=== PATIENT | female | born 1960 | race Caucasian/White ===

== ENCOUNTER → 2018-02-27 14:50 | Outpatient (CLI) | payer OTHER, SELFPAY ==
--- NOTE | 2018-02-27 14:52 | DI.MG.S_ITS ---
BILATERAL DIGITAL SCREENING MAMMOGRAM 3D/2D WITH CAD: 02/27/2018 CLINICAL: Routine screening. Comparison is made to exams dated: 02/18/2013 mammogram, 09/02/2011 mammogram - [facility], and 06/12/2006 mammogram - [facility]. The tissue of both breasts is heterogeneously dense. This may lower the sensitivity of mammography. Current study was also evaluated with a Computer Aided Detection (CAD) system. No significant masses, calcifications, or other findings are seen in either breast. There has been no significant interval change. IMPRESSION: NEGATIVE There is no mammographic evidence of malignancy. A 1 year screening mammogram is recommended. This exam was interpreted at Station ID: [id number]. NOTE: For mammograms, a report in lay terms will be sent to the patient. Approximately 15% of breast malignancies will not be visualized mammographically. In the management of a palpable breast mass, a negative mammogram must not discourage biopsy of a clinically suspicious lesion. Electronically Signed By: Logan martinez/sebastien:02/27/2018 16:51:31 letter sent: Normal Exam ACR BI-RADS Category 1: Negative 3341F
== END ==
DX: Z12.31 Encounter for screening mammogram for malignant neoplasm of breast (principal)
CPT/HCPCS: 77063; 77067

== ENCOUNTER → 2019-04-03 12:21 | Outpatient (CLI) | payer OTHER, SELFPAY ==
--- NOTE | 2019-04-03 | DI.MG.S_ITS ---
BILATERAL DIGITAL SCREENING MAMMOGRAM 3D/2D WITH CAD: 04/03/2019 CLINICAL: Routine screening. Comparison is made to exams dated: 02/27/2018 mammogram, 02/18/2013 mammogram, 09/02/2011 mammogram - [facility], 06/12/2006 mammogram - [facility], and 09/02/2011 [facility]. The tissue of both breasts is heterogeneously dense. This may lower the sensitivity of mammography. Current study was also evaluated with a Computer Aided Detection (CAD) system. No significant masses, calcifications, or other findings are seen in either breast. There has been no significant interval change. IMPRESSION: NEGATIVE There is no mammographic evidence of malignancy. A 1 year screening mammogram is recommended. This exam was interpreted at Station ID: [id number]. NOTE: For mammograms, a report in lay terms will be sent to the patient. Approximately 15% of breast malignancies will not be visualized mammographically. In the management of a palpable breast mass, a negative mammogram must not discourage biopsy of a clinically suspicious lesion. Electronically Signed By: Aditya patrick/sebastien:04/03/2019 20:16:45 letter sent: Normal Exam ACR BI-RADS Category 1: Negative 3341F
== END ==
PROVIDERS: PCP Physician Assistant Medical; Visit Provider Physician Assistant Medical
DX: Z12.31 Encounter for screening mammogram for malignant neoplasm of breast (principal)
CPT/HCPCS: 77063; 77067

== ENCOUNTER → 2020-08-11 16:02 | Outpatient (CLI) | payer OTHER, SELFPAY ==
--- NOTE | 2020-08-11 | DI.MG.S_ITS ---
BILATERAL DIGITAL SCREENING MAMMOGRAM 3D/2D WITH CAD: 08/11/2020 CLINICAL: Routine screening. Comparison is made to exams dated: 04/03/2019 mammogram and 02/27/2018 mammogram - [facility]. The tissue of both breasts is heterogeneously dense. This may lower the sensitivity of mammography. Current study was also evaluated with a Computer Aided Detection (CAD) system. No significant masses, calcifications, or other findings are seen in either breast. There has been no significant interval change. IMPRESSION: NEGATIVE There is no mammographic evidence of malignancy. A 1 year screening mammogram is recommended. This exam was interpreted at Station ID: [id number]. NOTE: For mammograms, a report in lay terms will be sent to the patient. Approximately 15% of breast malignancies will not be visualized mammographically. In the management of a palpable breast mass, a negative mammogram must not discourage biopsy of a clinically suspicious lesion. Electronically Signed By: Luis E hayden/sebastien:08/11/2020 16:52:58 letter sent: Normal Exam ACR BI-RADS Category 1: Negative 3341F
== END ==
PROVIDERS: PCP Physician Assistant Medical; Referring Provider Physician Assistant Medical; Visit Provider Physician Assistant Medical
DX: Z12.31 Encounter for screening mammogram for malignant neoplasm of breast (principal)
CPT/HCPCS: 77063; 77067

== ENCOUNTER → 2021-09-28 14:51 | Outpatient (CLI) | payer OTHER, SELFPAY ==
--- NOTE | 2021-09-28 | DI.MG.S_ITS ---
BILATERAL DIGITAL SCREENING MAMMOGRAM 3D/2D WITH CAD: 09/28/2021 CLINICAL: Routine screening. Comparison is made to exams dated: 08/11/2020 mammogram, 04/03/2019 mammogram, 02/27/2018 mammogram, and 02/18/2013 mammogram - [facility]. The tissue of both breasts is heterogeneously dense. This may lower the sensitivity of mammography. Current study was also evaluated with a Computer Aided Detection (CAD) system. No significant masses, calcifications, or other findings are seen in either breast. There has been no significant interval change. IMPRESSION: NEGATIVE There is no mammographic evidence of malignancy. A 1 year screening mammogram is recommended. This exam was interpreted at Station ID: [id number]. NOTE: For mammograms, a report in lay terms will be sent to the patient. Approximately 15% of breast malignancies will not be visualized mammographically. In the management of a palpable breast mass, a negative mammogram must not discourage biopsy of a clinically suspicious lesion. Electronically Signed By: Aditya patrick/sebastien:09/28/2021 17:15:34 letter sent: Normal Exam ACR BI-RADS Category 1: Negative 3341F
== END ==
PROVIDERS: PCP Physician Assistant Medical; Referring Provider Physician Assistant Medical; Visit Provider Physician Assistant Medical
DX: Z12.31 Encounter for screening mammogram for malignant neoplasm of breast (principal)
CPT/HCPCS: 77063; 77067

== ENCOUNTER → 2022-11-02 14:45 | Outpatient (CLI) | payer OTHER, SELFPAY ==
--- NOTE | 2022-11-02 | DI.MG.S_ITS ---
BILATERAL DIGITAL SCREENING MAMMOGRAM 3D/2D WITH CAD: 11/02/2022 CLINICAL: Routine screening. Comparison is made to exams dated: 09/28/2021 mammogram, 08/11/2020 mammogram, and 04/03/2019 mammogram - [facility]. Both breasts are heterogeneously dense, which may obscure small masses (category c / 51-75% glandular tissue). Current study was also evaluated with a Computer Aided Detection (CAD) system. No significant masses, calcifications, or other findings are seen in either breast. There has been no significant interval change. IMPRESSION: NEGATIVE There is no mammographic evidence of malignancy. A 1 year screening mammogram is recommended. Based on the Tyrer Cuzick model (a risk assessment model) the patient's lifetime risk is 10.5% and her 10 year risk is 4.7%. According to the ACR, ACS, and NCCN guidelines, an annual breast MRI exam along with mammogram is recommended if the patient's lifetime risk is 20% or greater. This exam was interpreted at Station ID: [id number]. NOTE: For mammograms, a report in lay terms will be sent to the patient. Approximately 15% of breast malignancies will not be visualized mammographically. In the management of a palpable breast mass, a negative mammogram must not discourage biopsy of a clinically suspicious lesion. Electronically Signed By: Brian hill/sebastien:11/02/2022 15:19:56 letter sent: Normal Exam ACR BI-RADS Category 1: Negative 3341F
== END ==
PROVIDERS: PCP Physician Assistant Medical; Referring Provider Physician Assistant Medical; Visit Provider Physician Assistant Medical
DX: Z12.31 Encounter for screening mammogram for malignant neoplasm of breast (principal)
CPT/HCPCS: 77063; 77067

== ENCOUNTER 2023-09-06 23:04 | Emergency (ER) | payer OTHER, SELFPAY ==
[2023-09-06 23:15] VITALS: BP 163/81; PULSE 62; RESP 15; TEMP 36.7; O2SAT 98; BMI 21.4
[2023-09-06 23:20] VITALS: PULSE 65; RESP 16; O2SAT 99
[2023-09-06 23:30] VITALS: BP 163/81; PULSE 61; O2SAT 99
[2023-09-06 23:31] LABS: Add Manual Diff / Slide Review NO; Basophils Absolute Auto 0 /uL (0-100); Basophils Percent Auto 0.4 % (0-2); Eosinophils Absolute Auto 0 /uL (0-450); Eosinophils Percent Auto 0.2 % (2-4); Hematocrit 40.1 % (36-46); Hemoglobin 13.8 g/dL (12.0-16.0); Lymphocytes Absolute Auto 1000 /uL (1100-4500); Lymphocytes Percent Auto 11.9 % (25-40); Mean Corpuscular HGB Conc 34.3 % (30-36); Mean Corpuscular Volume 90.3 fL (80-100); Monocytes Absolute Auto 300 /uL (0-900); Monocytes Percent Auto 3.8 % (3-14); Neutrophils Absolute Auto 7000 /uL (1500-7000); Neutrophils Percent Auto 83.7 % (50-75); Platelet Count 317 X10^3/uL (150-400); Red Blood Cell Count 4.44 X10^6/uL (4.0-5.2); Red Cell Distribution Width 13.6 % (11.6-14.8); White Blood Cell Count 8.3 X10^3/uL (4.5-11.0)
--- NOTE | 2023-09-06 23:31 | ED.GENADULT ---
HPI - General Adult General Chief complaint: Abdominal Pain Stated complaint: severe abd pain Time Seen by Provider: 09/06/23 23:18 Source: patient Mode of arrival: Ambulatory History of Present Illness HPI narrative: Patient is a 62-year-old female. Approximately 10 years ago she donated her right kidney. She also has had a ?fallopian tube cyst? approximately 20 years ago. The fallopian tube cyst did require surgical removal. Her last colonoscopy was approximately 10 years ago. She was scheduled for another colonoscopy in approximately 8 weeks. She states that at about 1500 this afternoon she started to get left-sided abdominal pain. She took some Tylenol and that seemed to resolve the symptoms for short period of time but then the symptoms returned. She then had some nausea but no vomiting. No change in urination. States she feels like she is emptying her bladder. No diarrhea. No constipation. No blood in her stool. Related Data Previous Rx's Medication Instructions Recorded peg 3350-sod sulf,swphh-klf-awe 1,000 ml PO DIRECTED #2,000 mL 09/01/23 178.7-7.3-0.5-1.12-0.9 gram oral soln (Suflave) Allergies Allergy/AdvReac Type Severity Reaction Status Date / Time SHELLFISH Allergy Mild CRABS, Uncoded 11/08/17 12:17 LARGE AMOUNTS Review of Systems Gastrointestinal Gastrointestinal: Reports system reviewed and no additional complaints, except as documented Genitourinary Genitourinary: Reports system reviewed and no additional complaints, except as documented Integumentary/Breasts Skin/Breast: Reports system reviewed and no additional complaints, except as documented Patient History Surgical History (Updated 11/28/17 @ 05:54 by Nirav Chowdhury MD) History of nephrectomy (06/10/13) Social History Smoking Status: Never smoker Smoking Status: Never smoker Substance Use Type: does not use Exam Initial Vital Signs Initial Vital Signs: Vital Signs Temperature 98.0 F 09/06/23 23:15 Pulse Rate 62 09/06/23 23:15 Respiratory Rate 15 09/06/23 23:15 Blood Pressure 163/81 H 09/06/23 23:15 Pulse Oximetry 98 09/06/23 23:15 Oxygen Delivery Method Room Air 09/06/23 23:15 HENMT Head: normal to inspection and normocephalic Resp Effort & Inspection: normal respiratory effort Cardio Rate: regular rate GI Inspection: non-distended and scar Palpation: soft, mass (Suprapubic region) and tender (Suprapubic region, left-sided abdomen) Neuro General: patient alert, patient awake and moves all extremities Extrem General: capillary refill normal Course Orders Ordered: ED Orders 09/06/23 23:10 Urine Culture Stat Urine Microscopic Stat 09/06/23 23:17 Complete Blood Count AUTO DIFF Stat Comprehensive Metabolic Panel Stat Lipase Stat 09/06/23 23:31 CT abdomen pelvis w con Stat 09/07/23 01:35 US pelvic complete Stat 09/07/23 02:53 CEA [Carcinoembryonic Antigen] Stat 09/07/23 03:03 Human Epididymis Prot 4 Stat Discontinued Medications Hydrocodone Bitart/Acetaminophen (Hydrocodone/Acet 5/325 Prepack) 1 bottle MISC DIRECTED ONE Stop: 09/07/23 04:11 Last Admin: 09/07/23 04:14 Dose: 1 bottle Documented By: KAVON Sodium Chloride (Normal Saline 0.9%) 1,000 mls @ 1,000 mls/hr IV BOLUS ONE Stop: 09/07/23 00:30 Last Infusion: 09/07/23 00:56 Dose: Infused Documented By: Admin: 09/06/23 23:40 Dose: 1,000 mls/hr Documented By: KAVON Ondansetron HCl (Ondansetron 4 Mg/2 Ml Inj) 4 mg IV NOW ONE Stop: 09/06/23 23:32 Last Admin: 09/06/23 23:40 Dose: 4 mg Documented By: KAVON Vital Signs Vital signs: Vital Signs - 8 hr 09/06/23 23:15 09/06/23 23:20 09/06/23 23:30 Temperature 98.0 F Pulse Rate 62 65 61 Respiratory Rate 15 16 Blood Pressure 163/81 H 163/81 H Pulse Oximetry 98 99 99 Oxygen Delivery Method Room Air Room Air 09/07/23 00:00 09/07/23 00:01 09/07/23 00:01 Temperature Pulse Rate 66 66 Respiratory Rate 18 Blood Pressure 152/67 H 152/67 H Pulse Oximetry 98 99 Oxygen Delivery Method Room Air 09/07/23 00:30 09/07/23 00:30 09/07/23 01:29 Temperature Pulse Rate 62 Respiratory Rate 17 Blood Pressure 147/70 H 144/78 H Pulse Oximetry 99 Oxygen Delivery Method Room Air 09/07/23 01:29 09/07/23 01:30 09/07/23 01:30 Temperature Pulse Rate 67 68 Respiratory Rate 17 Blood Pressure 139/81 Pulse Oximetry 96 97 Oxygen Delivery Method Room Air 09/07/23 02:00 09/07/23 02:00 09/07/23 02:30 Temperature Pulse Rate 67 67 Respiratory Rate 18 Blood Pressure 133/78 Pulse Oximetry 97 99 Oxygen Delivery Method Room Air 09/07/23 02:30 09/07/23 03:00 09/07/23 03:00 Temperature Pulse Rate 68 Respiratory Rate 19 Blood Pressure 139/69 137/67 Pulse Oximetry 97 Oxygen Delivery Method Room Air 09/07/23 03:30 09/07/23 03:30 09/07/23 04:00 Temperature Pulse Rate 68 67 Respiratory Rate 17 17 Blood Pressure 148/73 H Pulse Oximetry 98 97 Oxygen Delivery Method Room Air Room Air 09/07/23 04:00 Temperature Pulse Rate Respiratory Rate Blood Pressure 137/73 Pulse Oximetry Oxygen Delivery Method Medical Decision Making Lab Data Lab results reviewed: Yes I reviewed the patient's lab results. 09/06/23 23:17 09/06/23 23:17 Labs: Lab Results 09/06/23 09/06/23 Range/Units 23:10 23:17 WBC 8.3 (4.5-11.0) X10^3/uL RBC 4.44 (4.0-5.2) X10^6/uL Hgb 13.8 (12.0-16.0) g/dL Hct 40.1 (36-46) % MCV 90.3 (80-100) fL MCH 31.0 (26-34) PG MCHC 34.3 (30-36) % RDW 13.6 (11.6-14.8) % Plt Count 317 (150-400) X10^3/uL Neut % (Auto) 83.7 H (50-75) % Lymph % (Auto) 11.9 L (25-40) % Marin % (Auto) 3.8 (3-14) % Eos % (Auto) 0.2 L (2-4) % Baso % (Auto) 0.4 (0-2) % Neut # (Auto) 7000 (7693-3321) /uL Lymph # (Auto) 1000 L (2333-5290) /uL Marin # (Auto) 300 (0-900) /uL Eos # (Auto) 0 (0-450) /uL Baso # (Auto) 0 (0-100) /uL Sodium 137 (137-145) mmol/L Potassium 4.3 (3.4-5.1) mmol/L Chloride 102 (98-107) mmol/L Carbon Dioxide 27 (22-32) mmol/L BUN 16 (7-17) mg/dL Creatinine 0.89 (0.52-1.04) mg/dL Estimated GFR > 60 (>60) mL/min BUN/Creatinine Ratio 18.0 (6-22) Glucose 157 H (80-110) mg/dL Calcium 9.6 (8.4-10.2) mg/dL Total Bilirubin 0.5 (0.2-1.3) mg/dL AST 31 (14-36) IU/L ALT 24 (<35) IU/L Alkaline Phosphatase 78 (38-126) U/L Total Protein 7.7 (6.3-8.2) g/dL Albumin 4.5 (3.5-5.0) g/dL Globulin 3.2 (1.7-4.1) g/dL Albumin/Globulin Ratio 1.4 (1.0-2.8) Lipase 109 (23-300) U/L Carcinoembryonic Ag 1.2 (0.1-3.0) ng/mL Urine RBC 1-5/hpf (0-5/HPF) Urine WBC 1-5/hpf (0-5/HPF) Ur Squamous Epith Cells 1-5 /hpf (0-5/HPF) Urine Bacteria Moderate (10-30) H (None) Hyaline Casts 0-1/lpf (None) Urine Mucus 2+ H (Negative) Ur Culture Indicated? Specimen cultured Vol Urine Centrifuged 10ml (spun) Urine Dip Bedside Urine Glucose Negative Bedside Urine Bilirubin - Negative Bedside Urine Ketone +/- 5 Urine Specific [place] 1.030 Bedside Urine Occult Blood + Bedside Urine pH 6.0 Bedside Urine Protein +/- 15 Bedside Urine Urobilinogen - Negative Bedside Urine Nitrite - Negative Bedside Urine Leukocytes +/- 15 Esterase Point of care testing: Urine Dip Bedside Urine Glucose Negative Bedside Urine Bilirubin - Negative Bedside Urine Ketone +/- 5 Urine Specific [place] 1.030 Bedside Urine Occult Blood + Bedside Urine pH 6.0 Bedside Urine Protein +/- 15 Bedside Urine Urobilinogen - Negative Bedside Urine Nitrite - Negative Bedside Urine Leukocytes +/- [address] scan - abdomen/pelvis: Radiologist's Impression: ADDENDUMThis report includes an Addendum and supersedes previous reports for this exam. PROCEDURE: CT ABDOMEN PELVIS W CON INDICATIONS: LLQ abd pain TECHNIQUE: After the administration of intravenous contrast, axial sections acquired from the lung bases to the pubic symphysis. Coronal and sagittal reformats were performed. For radiation dose reduction, the following was used: automated exposure control, adjustment of mA and/or kV according to patient size. COMPARISON: None. FINDINGS: Image quality: Diagnostic. Lower Chest: No significant findings. ABDOMEN: Liver: No solid mass. Gallbladder: Normal. Biliary ducts: Minor central biliary dilatation. No extrahepatic biliary dilatation. No visible calcifications. Pancreas: No ductal dilation. Spleen: Size is within normal limits. Adrenal Glands: Mild left adrenal gland thickening. Normal right adrenal gland. Kidneys and Ureters: Surgically absent right kidney. There is normal left renal enhancement. Subcentimeter corticomedullary lower pole cyst. No hydronephrosis, nephrolithiasis, or perinephric inflammation. No visible left hydroureter. Stomach and Bowel: Stomach and proximal bowel loops are within normal limits. Clustered decompressed small bowel loops in the left lower quadrant are nonspecific. There is trace fluid in the anterior left lower quadrant. The appendix was not well seen. Visible loops of colon are normal. Peritoneum: No abnormal intraperitoneal fluid. No free air. Ventral Wall: No significant ventral hernia. Abdominal Nodes: No retroperitoneal or mesenteric adenopathy by size criteria. Vessels: Aorta and inferior vena cava are normal in size. PELVIS: Pelvic Organs: The uterus is anteverted and displaced to the left. Ovaries are not well seen by CT. Bladder: Urinary bladder is markedly distended. Normal wall thickness. No stones. Pelvic Nodes: No enlarged lymph nodes. Miscellaneous: No inguinal hernias are seen. Bones: No aggressive osseous abnormality. IMPRESSION: Markedly distended urinary bladder but without left-sided hydronephrosis. There is trace fluid in the anterior left lower quadrant and clustered decompressed left lower quadrant small bowel loops. These are nonspecific. Enteritis may have this appearance. No acute small bowel obstruction. Dictated by: Kaylynn Bui M.D. on 09/07/2023 at 0:30 Approved by: Kaylynn Bui M.D. on 09/07/2023 at 0:37 ADDENDUM: On further review, structure believed to be the urinary bladder initially is a unilocular cystic mass measuring 11.7 x 11.1 x 13.1 cm inferiorly displacing the urinary bladder. The organ of etiology is uncertain but most likely arises from the right ovary. There is no septation or significant mural nodularity. Internal Hounsfield units are that of minimally complex fluid, 13 HU. Findings discussed with Dr. Galvan in the emergency room. Pelvic ultrasound is pending. Dictated by: Kaylynn Bui M.D. on 09/07/2023 at 2:20 Approved by: Kaylynn Bui M.D. on 09/07/2023 at 2:23 Addendum Dictated By: Kaylynn Bui MD Addendum Signed By: 09/07/23222 Addendum Cosigned By: DD/ /23/223 TD/TT: 09/07/2303/23/223 PROCEDURE: CT ABDOMEN PELVIS W CON INDICATIONS: LLQ abd pain TECHNIQUE: After the administration of intravenous contrast, axial sections acquired from the lung bases to the pubic symphysis. Coronal and sagittal reformats were performed. For radiation dose reduction, the following was used: automated exposure control, adjustment of mA and/or kV according to patient size. COMPARISON: None. FINDINGS: Image quality: Diagnostic. Lower Chest: No significant findings. ABDOMEN: Liver: No solid mass. Gallbladder: Normal. Biliary ducts: Minor central biliary dilatation. No extrahepatic biliary dilatation. No visible calcifications. Pancreas: No ductal dilation. Spleen: Size is within normal limits. Adrenal Glands: Mild left adrenal gland thickening. Normal right adrenal gland. Kidneys and Ureters: Surgically absent right kidney. There is normal left renal enhancement. Subcentimeter corticomedullary lower pole cyst. No hydronephrosis, nephrolithiasis, or perinephric inflammation. No visible left hydroureter. Stomach and Bowel: Stomach and proximal bowel loops are within normal limits. Clustered decompressed small bowel loops in the left lower quadrant are nonspecific. There is trace fluid in the anterior left lower quadrant. The appendix was not well seen. Visible loops of colon are normal. Peritoneum: No abnormal intraperitoneal fluid. No free air. Ventral Wall: No significant ventral hernia. Abdominal Nodes: No retroperitoneal or mesenteric adenopathy by size criteria. Vessels: Aorta and inferior vena cava are normal in size. PELVIS: Pelvic Organs: The uterus is anteverted and displaced to the left. Ovaries are not well seen by CT. Bladder: Urinary bladder is markedly distended. Normal wall thickness. No stones. Pelvic Nodes: No enlarged lymph nodes. Miscellaneous: No inguinal hernias are seen. Bones: No aggressive osseous abnormality. IMPRESSION: Markedly distended urinary bladder but without left-sided hydronephrosis. There is trace fluid in the anterior left lower quadrant and clustered decompressed left lower quadrant small bowel loops. These are nonspecific. Enteritis may have this appearance. No acute small bowel obstruction. Dictated by: Kaylynn Bui M.D. on 09/07/2023 at 0:30 Approved by: Kaylynn Bui M.D. on 09/07/2023 at 0:37 [facility] - [facility]: Radiologist's Impression: Has visualized on the accompanying CT examination a large anechoic cystic like structure within the central aspect of the pelvis both anterior to the uterus and superior to the urinary bladder. The cyst measures 13.5 x 13.7 by 10.3 cm. The size of the cyst obscures visualization of bilateral ovaries. Given size of the cyst and patient's age recommend surgical evaluation. Consider MRI imaging of the female pelvis with IV contrast for improve characterization of the adnexa MDM Narrative Medical decision making narrative: Patient is very skinny so it is easy to feel a masslike structure in her adnexa. She denies any urinary symptoms or change in bowel habits. Labs are unremarkable. Vital signs unremarkable. She does have a relatively benign abdominal exam. No vaginal bleeding. CT scan initial report was the patient had a large urinary bladder. Postvoid residual showed volume of almost 900 cc. A Hale catheter was placed. Only a very small amount of urine came out. The Hale catheter was flushed. I did have nursing staff removed that catheter in place a new 1 to confirm that we were in the correct position and once again only a small amount of urine resulted. I then discussed the case with Dr. Bui radiologist who was on-call who reviewed the CT scan. She states there is a possibility that this is a cystic structure not the bladder. She stated that it did appear to be sitting on top of the bladder. Ultrasound was ordered. It does show a large cystic structure. The ovaries were not identified. I discussed the case with Dr. Espinal on-call for telephone diaphragm assembler. She asked specific labs that would help in follow-up. No indication for admission to the hospital for emergent surgical surgery. We will plan for outpatient telephone diaphragm assembler follow-up. I did discuss all this with the patient. She expressed understanding and agreement with plan. Discharge Plan Departure Patient Disposition: Home Clinical Impression: Pelvic cyst Activity Restrictions/Additional Instructions: Recommend that when the office is open later today that you give Dr. Santiago at the [facility] a call for a follow-up. I did discuss the CT and ultrasound findings today with her and she would like to see you in the clinic as an outpatient to discuss further evaluation and treatment. Return to the emergency department for new symptoms. Prescriptions: No Action Suflave 178.7-7.3-0.5 gram recon soln 1,000 ml PO DIRECTED Qty: 2000 0RF Rx Instructions: follow instruction form provided by [facility] Referrals: Chasity Santiago DO [Physician] - Kaylan Almendarez PA-C [Primary Care Provider] - Stand Alone Forms: Patient Portal/API
[2023-09-06 23:34] LABS: Bacteria Urine Moderate (10-30); Hyaline Casts Urine 0-1/LPF; RBC Urine 1-5/HPF (0-5/HPF); Squamous Epithelial Cell Urine 1-5 /HPF (0-5/HPF); Urine Volume 10mL (spun); WBC Urine 1-5/HPF (0-5/HPF)
[2023-09-06 23:35] LABS: Mucus Urine 2+ (Negative)
[2023-09-06 23:36] LABS: Culture Indicated Urine Specimen Cultured
[2023-09-06 23:40] LABS: Alanine Aminotransferase 24 IU/L (<35); Albumin 4.5 g/dL (3.5-5.0); Albumin Globulin Ratio 1.4 (1.0-2.8); Alkaline Phosphatase 78 U/L (38-126); Aspartate Aminotransferase 31 IU/L (14-36); Bilirubin Total 0.5 mg/dL (0.2-1.3); Blood Urea Nitrogen 16 mg/dL (7-17); Calcium 9.6 mg/dL (8.4-10.2); Carbon Dioxide 27 mmol/L (22-32); Chloride 102 mmol/L (98-107); Estimated Glomerular Filt Rate > 60 mL/min (>60); Globulin 3.2 g/dL (1.7-4.1); Glucose 157 mg/dL (80-110); HEMOLYSIS < 15 (0-50); Lipase 109 U/L (23-300); Potassium 4.3 mmol/L (3.4-5.1); Sodium 137 mmol/L (137-145); Total Protein 7.7 g/dL (6.3-8.2)
[2023-09-06] MEDS: ONDANSETRON 4 MG/2 ML INJ IV (23:40)
[2023-09-06] MEDS: SODIUM CHLORIDE 0.9% 1,000 ML 1000 ML IV (23:40)
[2023-09-07] VITALS (10 sets, daily range): BP systolic 133–152; BP diastolic 67–81; PULSE 62–68; RESP 17–19; O2SAT 96–99
--- NOTE | 2023-09-07 01:35 | DI.US.S_ITS ---
PROCEDURE: US PELVIC COMPLETE INDICATIONS: large ovarian cyst TECHNIQUE: Real-time scanning was performed of the pelvic organs, with image documentation. Additional endovaginal scanning was necessary due to incomplete visualization of the adnexal and endometrial structures by transabdominal scanning. COMPARISON: , CT, CT ABDOMEN PELVIS W CON, 09/06/2023, 23:47. [facility], [place], PELVIC COMPLETE, 11/23/2011, 16:26. FINDINGS: Uterus: Uterus is anteverted and normal in size at 7.2 x 3.0 x 4.9 cm. The myometrium is homogeneous. The endometrium measures 4.4 mm combined thickness. Ovaries: The ovaries are not seen. There is a large midline simple cyst measuring 13.5 x 13.7 x 10.3 centimeters. Other: No pathologic free abdominal or pelvic fluid. Hale catheter seen within the urinary bladder. IMPRESSION: Large anechoic cystic structure within the central pelvis measuring up to 13.7 centimeters. The origin the cyst is not visualized. Findings are concerning for a possible ovarian neoplasm. Recommend gynecology consultation. The ovaries are not visualized. Findings are concordant with preliminary interpretation provided by [facility]. We strive to produce accurate, complete, and clear reports of imaging services. To assist us in improving patient care, this report was composed using standard report templates and voice recognition software. Therefore, it may contain abnormal punctuation, insertions and/or omissions. Occasional wrong-word or sound-alike substitutions may occur. Though we review the report and make efforts to correct it, we do recommend that the report be read carefully in proper context to recognize any text inaccuracies. Dictated by: Wyatt Najera M.D. on 09/07/2023 at 8:18 Approved by: Wyatt Najera M.D. on 09/07/2023 at 8:21
[2023-09-07 03:42] LABS: Carcinoembryonic Antigen 1.2 ng/mL (0.1-3.0)
[2023-09-07] MEDS: HYDROCODONE/ACET 5/325 PREPACK 1 BOTTLE MISC (04:14)
[2023-09-12 18:21] LABS: Human Epididymis Prot 4 39.6 pmol/L (0.0-96.5)
== END 2023-09-07 04:21 | disposition home or self-care (01) ==
PROVIDERS: Emergency Provider Emergency Medicine; PCP Physician Assistant Medical
DX: N94.89 Other specified conditions associated with female genital organs and menstrual cycle (principal)
CPT/HCPCS: 36415; 51798; 74177; 76830; 76856; 80053; 81003; 81015; 82378; 83690; 85025; 86305; 87086; 99285; J2405; Q9967

== ENCOUNTER 2023-09-09 10:12 | Day surgery (SDC) | payer OTHER, SELFPAY ==
[2023-09-09] VITALS (9 sets, daily range): BP systolic 114–138; BP diastolic 69–83; PULSE 83–100; RESP 16–26; TEMP 36.9–38.1; O2SAT 97–99; BMI 20.9
--- NOTE | 2023-09-09 | PATH_ITS ---
[facility] Accession Number: [id number] No. of containers..01 Tissue . 01 Material submitted: . fallopian tube - BILATERAL TUBES AND OVARIES WITH LEFT OVARIAN CYST . 01 Diagnosis: Bilateral Fallopian Tubes and Ovaries with Left Ovarian Cyst; Bilateral Salpingo-oophorectomy: Left ovary: Benign cystadenoma endometrioid-type, with torsion. Negative for significant atypia and malignancy. Right ovary: Benign ovary with cystic follicles. Left fallopian tube: Benign fallopian tube with changes secondary to torsion of attached left ovary. Right fallopian tube: No significant diagnostic abnormalities. [facility] 09/15/2023 1601 Local . 01 Comment: As part of ongoing quality improvement consultant, selected slides (A12 and A19) were also reviewed by Dr. Candis Figueroa, who agrees with the interpretation. . 01 Electronically signed: . Juana Okeefe MD, Pathologist NPI- [id number] . 01 Gross description: . The specimen is received in formalin labeled with the patient's name, , and bilateral fallopian tubes and ovaries with left ovarian cyst, consists of an intact fimbriated fallopian tube measuring 5.5 cm in length by 1.2 cm in diameter with attached ovary weighing 5 grams and measuring 3.7 x 2.0 x 1.3 cm. The tube has violaceous smooth serosa with no cystic structures identified, and sectioning reveals an unremarkable stellate lumen. The ovary has a cheney, cerebriform external surface. Sectioning reveals a thin, smooth-walled cystic structure filled with cheney serous fluid measuring 0.8 cm in greatest dimension with no excrescences identified. . The second fallopian tube has ragged presumed fimbriae, and measures 4.1 cm in length by 0.6 cm in diameter with violaceous serosa. Sectioning reveals an unremarkable stellate lumen. The presumed second ovary consists of multiple fragments of violaceous membranous soft tissue admixed with hemorrhagic material consistent with disrupted cyst weighing 126 grams, and aggregating to 14.8 x 12.4 x 4.5 cm. No excrescences are grossly identified; however, the fragments of presumed cyst wall are thickened with hemorrhagic material up to 0.8 cm. Sectioning reveals a violaceous to hemorrhagic cut surface with no normal ovarian parenchyma grossly identified. . [employer] Service [employer] sections are submitted as follow: A1: First fallopian tube to include one-half of bisected fimbriae and cross sections. A2: First ovary to include cystic structure. A3: Second fallopian tube to include one-half of ragged fimbriae and cross sections. A4-A20: Agricultural Service Technician hemorrhagic fragment of presumed cyst. ([id number]) /MRV 09/12/2023 1236 Local . 01 Microscopic: . Microscopic examination of the left ovarian cyst reveals a unilocular cyst lined by endometrioid type epithelium, without definite endometrial stroma. The endometrioid-type epithelium is highlighted by PAX-8 immunostain (block A19). The lining epithelium shows focal squamoid metaplasia, and in some areas marked degenerative changes secondary to torsion. In addition, marked congestion and hemorrhage are noted. The histologic findings support endometrioid-type cystadenoma of the left ovary, without definite background of endometriosis. There is no significant cytologic atypia or malignancy. . * This test was developed and its performance characteristics determined by [employer]. It has not been cleared or approved by the U.S. Food and Drug Administration. The FDA has determined that such clearance or approval is not necessary. This test is used for clinical purposes. It should not be regarded as investigational or for research. . 01 Pathologist provided ICD-10: D27.9 . 01 CPT . 340272, N50823 Specimen Comment: A courtesy copy of this report has been sent to [phone] Performed at: 01 [facility] Cytology [address] [place] [address], [place], [place] [id number] MD Jaspreet Guo MD Phone: [phone]
[2023-09-09 11:03] LABS: Add Manual Diff / Slide Review NO; Basophils Absolute Auto 100 /uL (0-100); Basophils Percent Auto 0.4 % (0-2); Eosinophils Absolute Auto 0 /uL (0-450); Eosinophils Percent Auto 0.1 % (2-4); Hematocrit 38.2 % (36-46); Hemoglobin 12.8 g/dL (12.0-16.0); Lymphocytes Absolute Auto 1000 /uL (1100-4500); Mean Corpuscular HGB Conc 33.6 % (30-36); Mean Corpuscular Hemoglobin 30.8 PG (26-34); Mean Corpuscular Volume 91.8 fL (80-100); Monocytes Absolute Auto 1600 /uL (0-900); Monocytes Percent Auto 8.1 % (3-14); Neutrophils Absolute Auto 17200 /uL (1500-7000); Neutrophils Percent Auto 86.4 % (50-75); Platelet Count 314 X10^3/uL (150-400); Red Blood Cell Count 4.17 X10^6/uL (4.0-5.2); Red Cell Distribution Width 13.6 % (11.6-14.8); White Blood Cell Count 19.9 X10^3/uL (4.5-11.0)
[2023-09-09 11:14] LABS: Alanine Aminotransferase 21 IU/L (<35); Albumin 4.1 g/dL (3.5-5.0); Albumin Globulin Ratio 1.1 (1.0-2.8); Alkaline Phosphatase 73 U/L (38-126); Aspartate Aminotransferase 23 IU/L (14-36); BUN Creatinine Ratio 14.6 (6-22); Bilirubin Total 0.8 mg/dL (0.2-1.3); Blood Urea Nitrogen 15 mg/dL (7-17); Calcium 9.5 mg/dL (8.4-10.2); Carbon Dioxide 25 mmol/L (22-32); Chloride 99 mmol/L (98-107); Estimated Glomerular Filt Rate > 60 mL/min (>60); Globulin 3.6 g/dL (1.7-4.1); Glucose 126 mg/dL (80-110); HEMOLYSIS < 15 (0-50); Lipase 49 U/L (23-300); Potassium 4.2 mmol/L (3.4-5.1); Sodium 135 mmol/L (137-145); Total Protein 7.7 g/dL (6.3-8.2)
[2023-09-09 11:50] LABS: Urine Volume 10mL (spun)
[2023-09-09 11:51] LABS: Bacteria Urine Few (2-10); RBC Urine 1-5/HPF (0-5/HPF); Squamous Epithelial Cell Urine 1-5 /HPF (0-5/HPF); WBC Urine 1-5/HPF (0-5/HPF)
[2023-09-09] MEDS: SODIUM CHLORIDE 0.9% 1,000 ML 1000 ML IV (12:15)
--- NOTE | 2023-09-09 13:34 | ED_ITS ---
HPI - Abdominal Pain <Radha Ibrahim PA-C - Last Filed: 09/09/23 14:24> General Chief Complaint: Abdominal Pain Stated Complaint: abd issues Time Seen by Provider: 09/09/23 11:42 Source: patient Mode of arrival: Family Vehicle History of Present Illness HPI narrative: Patient is a 62-year-old female who presents with worsening abdominal pain and distention. She was seen 3 days ago in the ER where a large (13.5 x 13.7 x10.3cm) cyst was seen in her pelvis, on both CT and ultrasound. The ovaries were not visualized. She was told to follow up with Gynecology has a has a appointment scheduled with Dr. Santiago on Monday. Over the past 3 days, she has experienced progressively more abdominal distention, is unable to eat more than one spoonful of yogurt and is drinking a very small amount of water. She endorses low-grade fever of 100.1 at home and chills. She denies nausea, vomiting, urinary symptoms, back pain, blood in her stool or visible blood in her urine. She has tried taking both Tylenol hydrocodone home; neither seemed to help with her discomfort or pain. Approximately 10 years ago she donated her right kidney. She also has had a ?fallopian tube cyst? approximately 20 years ago. The fallopian tube cyst did require surgical removal. Her last colonoscopy was approximately 10 years ago. She was scheduled for another colonoscopy in approximately 8 weeks. Related Data Previous Rx's Medication Instructions Recorded peg 3350-sod sulf,psxkz-gpc-dgc 1,000 ml PO DIRECTED #2,000 mL 09/01/23 178.7-7.3-0.5-1.12-0.9 gram oral soln (Suflave) Allergies Allergy/AdvReac Type Severity Reaction Status Date / Time SHELLFISH Allergy Mild CRABS, Uncoded 11/08/17 12:17 LARGE AMOUNTS Review of Systems <Radha Ibrahim PA-C - Last Filed: 09/09/23 14:24> Review of Systems ROS Unobtainable: All systems reviewed & are unremarkable except as noted in HPI and below Patient History <Radha Ibrahim PA-C - Last Filed: 09/09/23 14:24> Surgical History (Updated 09/09/23 @ 14:27 by Jennifer Turcios MD) History of salpingectomy History of nephrectomy (06/10/13) Social History Smoking Status: Never smoker Smoking Status: Never smoker Substance Use Type: does not use Exam <Radha Ibrahim PA-C - Last Filed: 09/09/23 14:24> Narrative Exam Narrative: GENERAL: 62 year old patient appears stated age. Well-developed patient, in mild distress. NEURO: AOx3. HEAD: Atraumatic. Normocephalic. EYES: Pupils equal round and reactive. Extraocular motions intact. No scleral icterus. No injection or drainage. ENT: Nose without bleeding or purulent drainage. Airway patent. CARDIOVASCULAR: Regular rate and rhythm without murmurs, gallops, or rubs. RESPIRATORY: Clear to auscultation. Breath sounds equal bilaterally. No wheezes, rales, or rhonchi. GASTROINTESTINAL: Abdomen visibly distended, diffusely tender to light palpation. EXTREMITIES: No edema or joint tenderness. SKIN: No rash or erythema of visible areas Initial Vital Signs Initial Vital Signs: Vital Signs Temperature 98.4 F 09/09/23 10:32 Pulse Rate 100 H 09/09/23 10:32 Respiratory Rate 16 09/09/23 10:32 Blood Pressure 118/76 09/09/23 10:32 Pulse Oximetry 98 09/09/23 10:32 Oxygen Delivery Method Room Air 09/09/23 10:32 <Mitali Sandy MD - Last Filed: 09/09/23 15:35> Initial Vital Signs Initial Vital Signs: Vital Signs Temperature 98.4 F 09/09/23 10:32 Pulse Rate 100 H 09/09/23 10:32 Respiratory Rate 16 09/09/23 10:32 Blood Pressure 118/76 09/09/23 10:32 Pulse Oximetry 98 09/09/23 10:32 Oxygen Delivery Method Room Air 09/09/23 10:32 Course <Radha Ibrahim PA-C - Last Filed: 09/09/23 14:24> Orders Ordered: ED Orders 09/09/23 10:40 Cancer Antigen 125 Stat Complete Blood Count AUTO DIFF Stat Comprehensive Metabolic Panel Stat Lipase Stat 09/09/23 11:31 Urine Culture Stat Urine Microscopic Stat Lactated Ringer's (Lactated Ringers) 1,000 mls @ 21 mls/hr IV CONT TIFFANY Ondansetron HCl (Ondansetron 4 Mg/2 Ml Inj) 4 mg IV NOW PRN PRN Reason: Nausea And Vomiting Ondansetron HCl (Ondansetron 4 Mg Odt) 4 mg PO NOW PRN PRN Reason: Nausea And Vomiting Discontinued Medications Sodium Chloride (Normal Saline 0.9%) 1,000 mls @ 1,000 mls/hr IV BOLUS ONE Stop: 09/09/23 13:00 Last Infusion: 09/09/23 13:20 Dose: Infused Documented By: Admin: 09/09/23 12:15 Dose: 1,000 mls/hr Documented By: CHARITO Cefazolin Sodium/Dextrose (Ancef) 100 mls @ 200 mls/hr IV NOW ONE Stop: 09/09/23 14:52 Vital Signs Vital signs: Vital Signs - 8 hr 09/09/23 10:32 09/09/23 13:38 Temperature 98.4 F 99.3 F Pulse Rate 100 H 86 Respiratory Rate 16 20 Blood Pressure 118/76 138/76 Pulse Oximetry 98 Oxygen Delivery Method Room Air Room Air <Mitali Sandy MD - Last Filed: 09/09/23 15:35> Orders Ordered: ED Orders 09/09/23 10:40 Cancer Antigen 125 Stat Complete Blood Count AUTO DIFF Stat Comprehensive Metabolic Panel Stat Lipase Stat 09/09/23 11:31 Urine Culture Stat Urine Microscopic Stat Lactated Ringer's (Lactated Ringers) 1,000 mls @ 21 mls/hr IV CONT TIFFANY Ondansetron HCl (Ondansetron 4 Mg/2 Ml Inj) 4 mg IV NOW PRN PRN Reason: Nausea And Vomiting Ondansetron HCl (Ondansetron 4 Mg Odt) 4 mg PO NOW PRN PRN Reason: Nausea And Vomiting Discontinued Medications Sodium Chloride (Normal Saline 0.9%) 1,000 mls @ 1,000 mls/hr IV BOLUS ONE Stop: 09/09/23 13:00 Last Infusion: 09/09/23 13:20 Dose: Infused Documented By: Admin: 09/09/23 12:15 Dose: 1,000 mls/hr Documented By: CHARITO Cefazolin Sodium/Dextrose (Ancef) 100 mls @ 200 mls/hr IV NOW ONE Stop: 09/09/23 14:52 Vital Signs Vital signs: Vital Signs - 8 hr 09/09/23 10:32 09/09/23 13:38 Temperature 98.4 F 99.3 F Pulse Rate 100 H 86 Respiratory Rate 16 20 Blood Pressure 118/76 138/76 Pulse Oximetry 98 Oxygen Delivery Method Room Air Room Air MDM - Abdominal Pain <Radha Ibrahim PA-C - Last Filed: 09/09/23 14:24> Lab Data 09/09/23 10:40 09/09/23 10:40 Labs: Lab Results 09/09/23 09/09/23 Range/Units 10:40 11:31 WBC 19.9 H (4.5-11.0) X10^3/uL RBC 4.17 (4.0-5.2) X10^6/uL Hgb 12.8 (12.0-16.0) g/dL Hct 38.2 (36-46) % MCV 91.8 (80-100) fL MCH 30.8 (26-34) PG MCHC 33.6 (30-36) % RDW 13.6 (11.6-14.8) % Plt Count 314 (150-400) X10^3/uL Neut % (Auto) 86.4 H (50-75) % Lymph % (Auto) 5.0 L (25-40) % [place] % (Auto) 8.1 (3-14) % Eos % (Auto) 0.1 L (2-4) % Baso % (Auto) 0.4 (0-2) % Neut # (Auto) 08493 H (2910-9198) /uL Lymph # (Auto) 1000 L (5044-5823) /uL [place] # (Auto) 1600 H (0-900) /uL Eos # (Auto) 0 (0-450) /uL Baso # (Auto) 100 (0-100) /uL Sodium 135 L (137-145) mmol/L Potassium 4.2 (3.4-5.1) mmol/L Chloride 99 (98-107) mmol/L Carbon Dioxide 25 (22-32) mmol/L BUN 15 (7-17) mg/dL Creatinine 1.03 (0.52-1.04) mg/dL Estimated GFR > 60 (>60) mL/min BUN/Creatinine Ratio 14.6 (6-22) Glucose 126 H (80-110) mg/dL Calcium 9.5 (8.4-10.2) mg/dL Total Bilirubin 0.8 (0.2-1.3) mg/dL AST 23 (14-36) IU/L ALT 21 (<35) IU/L Alkaline Phosphatase 73 (38-126) U/L Total Protein 7.7 (6.3-8.2) g/dL Albumin 4.1 (3.5-5.0) g/dL Globulin 3.6 (1.7-4.1) g/dL Albumin/Globulin Ratio 1.1 (1.0-2.8) Lipase 49 D (23-300) U/L CA 125 Antigen 18.5 (0-35) U/mL Urine RBC 1-5/hpf (0-5/HPF) Urine WBC 1-5/hpf (0-5/HPF) Ur Squamous Epith Cells 1-5 /hpf (0-5/HPF) Urine Bacteria Few (2-10) H (None) Vol Urine Centrifuged 10ml (spun) Point of care testing: Urine Dip Bedside Urine Glucose Negative Bedside Urine Bilirubin - Negative Bedside Urine Ketone - Negative Urine Specific [place] 1.015 Bedside Urine Occult Blood +++ Bedside Urine pH 6.0 Bedside Urine Protein +/- 15 Bedside Urine Urobilinogen - Negative Bedside Urine Nitrite - Negative Bedside Urine Leukocytes + 70 Esterase MDM Narrative Medical decision making narrative: Patient returns after 3 days for increasing distention, minimal appetite, low- grade fever and chills. Labs show a new leukocytosis with left shift, chemistry without clinically significant abnormality, urine with few bacteria. Patient's vital signs are within normal limits. Dr. Turcios, on-call OBGYN, consulted. She requests a CEA 125 lab test and pelvic ultrasound to evaluate for torsion. Discussed case with limited radiology technician who did the previous ultrasound on 09/06/23 who was not able to visualize the ovaries or obtain any Doppler flow because of the large cyst on that day. Dr. Turcios requests we proceed with a lab test. CA [address] Turcios notified. Dr. Turciso at bedside at 2:00 p.m., consented patient for OR. Patient to OR under Dr. Turcios's care. <Mitali Sandy MD - Last Filed: 09/09/23 15:35> Lab Data Labs: Lab Results 09/09/23 09/09/23 Range/Units 10:40 11:31 WBC 19.9 H (4.5-11.0) X10^3/uL RBC 4.17 (4.0-5.2) X10^6/uL Hgb 12.8 (12.0-16.0) g/dL Hct 38.2 (36-46) % MCV 91.8 (80-100) fL MCH 30.8 (26-34) PG MCHC 33.6 (30-36) % RDW 13.6 (11.6-14.8) % Plt Count 314 (150-400) X10^3/uL Neut % (Auto) 86.4 H (50-75) % Lymph % (Auto) 5.0 L (25-40) % [place] % (Auto) 8.1 (3-14) % Eos % (Auto) 0.1 L (2-4) % Baso % (Auto) 0.4 (0-2) % Neut # (Auto) 39375 H (3207-0738) /uL Lymph # (Auto) 1000 L (0501-2941) /uL [place] # (Auto) 1600 H (0-900) /uL Eos # (Auto) 0 (0-450) /uL Baso # (Auto) 100 (0-100) /uL Sodium 135 L (137-145) mmol/L Potassium 4.2 (3.4-5.1) mmol/L Chloride 99 (98-107) mmol/L Carbon Dioxide 25 (22-32) mmol/L BUN 15 (7-17) mg/dL Creatinine 1.03 (0.52-1.04) mg/dL Estimated GFR > 60 (>60) mL/min BUN/Creatinine Ratio 14.6 (6-22) Glucose 126 H (80-110) mg/dL Calcium 9.5 (8.4-10.2) mg/dL Total Bilirubin 0.8 (0.2-1.3) mg/dL AST 23 (14-36) IU/L ALT 21 (<35) IU/L Alkaline Phosphatase 73 (38-126) U/L Total Protein 7.7 (6.3-8.2) g/dL Albumin 4.1 (3.5-5.0) g/dL Globulin 3.6 (1.7-4.1) g/dL Albumin/Globulin Ratio 1.1 (1.0-2.8) Lipase 49 D (23-300) U/L CA 125 Antigen 18.5 (0-35) U/mL Urine RBC 1-5/hpf (0-5/HPF) Urine WBC 1-5/hpf (0-5/HPF) Ur Squamous Epith Cells 1-5 /hpf (0-5/HPF) Urine Bacteria Few (2-10) H (None) Vol Urine Centrifuged 10ml (spun) Point of care testing: Urine Dip Bedside Urine Glucose Negative Bedside Urine Bilirubin - Negative Bedside Urine Ketone - Negative Urine Specific [place] 1.015 Bedside Urine Occult Blood +++ Bedside Urine pH 6.0 Bedside Urine Protein +/- 15 Bedside Urine Urobilinogen - Negative Bedside Urine Nitrite - Negative Bedside Urine Leukocytes + 70 Esterase Discharge Plan Departure Patient Disposition: Admitted As Inpatient Clinical Impression: Pelvic cyst Admit Date/Time: 09/09/23 14:05 Admit Provider: Jennifer Turcios ED Sign-out <Mitali Sandy MD - Last Filed: 09/09/23 15:35> Cosign ED Attending Cosignature Attestation: Case discussed with me by Radha Ibrahim. I evaluated this patient. I agree with plan and disposition
[2023-09-09 13:47] LABS: Cancer Antigen 125 18.5 U/mL (0-35)
--- NOTE | 2023-09-09 14:24 | PM.GYNHP.1 ---
History of Present Illness History of Present Illness Reason for admission: pelvic mass Narrative: Pippa Case is a 62 year old female who presentsd to the ED for worsening abdominal/pelvic pain and difficulty taking a deep breath. Patient seen in the ED 09/06/23 for abdominal pain. HE-4 ordered but results not back. Patient reports some nausea and vomiting secondary to the pain. She has not had any change in stool. She does feel some pelvic pressure. She reports a temperature of 100.1? at home. Some chills. Patient had an appointment scheduled early next week to follow-up from the ED. She came to the emergency department today because she felt short of breath and her symptoms in her abdomen or worsening [facility] Surgical History (Updated 09/09/23 @ 14:27 by Jennifer Turcios MD) History of salpingectomy History of nephrectomy (06/10/13) Social History Smoking Status: Never smoker Meds Home Medications and Allergies Home Medications Medication Instructions Recorded Confirmed Type peg 3350-sod sulf,woyaw-prs-qsa 1,000 ml PO DIRECTED #2,000 mL 09/01/23 Rx 178.7-7.3-0.5-1.12-0.9 gram oral soln (Suflave) Allergies Allergy/AdvReac Type Severity Reaction Status Date / Time SHELLFISH Allergy Mild CRABS, Uncoded 11/08/17 12:17 LARGE AMOUNTS Review of Systems Review of Systems ROS: Yes All systems reviewed with the patient and are negative except as otherwise documented Constitutional Constitutional: Reports as per HPI, Reports anorexia, Reports chills and Reports fever(s) ENT Ears, Nose, Mouth, and Throat: No dysphagia and No odynophagia Cardiovascular Cardiovascular: Reports dyspnea Respiratory Respiratory: Reports system reviewed and no additional complaints, except as documented and Reports dyspnea Gastrointestinal Gastrointestinal: Reports system reviewed and no additional complaints, except as documented, Reports abdominal pain, Denies melena, Reports bloating, Denies hematochezia, Denies change in bowel habits, Denies tenesmus, Denies change in stool character, Denies coffee ground emesis, Denies constipation, Reports cramping, Denies dysphagia, Denies excessive flatus, Reports early satiety, Denies heartburn, Denies fecal incontinence, Denies loose stools, Denies odynophagia, Reports vomiting and Denies hematemesis Genitourinary Genitourinary: Reports system reviewed and no additional complaints, except as documented, Denies abnormal vaginal bleeding, Denies hematuria, Reports urinary frequency and Reports difficulty voiding Exam Vital Signs (past 8 hours): - 09/09/23 10:32 09/09/23 13:38 Temperature 98.4 F 99.3 F Pulse Rate 100 H 86 Respiratory Rate 16 20 Blood Pressure 118/76 138/76 Pulse Oximetry 98 Oxygen Delivery Method Room Air Room Air Oxygen Delivery Method Room Air Narrative Exam Narrative: Generally: Patient lying on a gurney on her right side, moderate distress secondary to discomfort Lungs: Clear to auscultation bilaterally Cardiovascular: Regular rate and rhythm Abdomen: Soft. Cystic structure palpable. Well-healed laparoscopy and Pfannenstiel incisions. Extremities: No edema Ultrasound: 13 cm mass in the midline of the pelvis, unsure which ovary it is originating from. No papillations. No septations. Objective Labs 09/09/23 10:40 09/09/23 10:40 Labs: Laboratory Results - last 24 hr 09/09/23 09/09/23 10:40 11:31 WBC 19.9 H RBC 4.17 Hgb 12.8 Hct 38.2 MCV 91.8 MCH 30.8 MCHC 33.6 RDW 13.6 Plt Count 314 Neut % (Auto) 86.4 H Lymph % (Auto) 5.0 L [place] % (Auto) 8.1 Eos % (Auto) 0.1 L Baso % (Auto) 0.4 Neut # (Auto) 71964 H Lymph # (Auto) 1000 L [place] # (Auto) 1600 H Eos # (Auto) 0 Baso # (Auto) 100 Sodium 135 L Potassium 4.2 Chloride 99 Carbon Dioxide 25 BUN 15 Creatinine 1.03 Estimated GFR > 60 BUN/Creatinine Ratio 14.6 Glucose 126 H Calcium 9.5 Total Bilirubin 0.8 AST 23 ALT 21 Alkaline Phosphatase 73 Total Protein 7.7 Albumin 4.1 Globulin 3.6 Albumin/Globulin Ratio 1.1 Lipase 49 D CA 125 Antigen 18.5 Urine RBC 1-5/hpf Urine WBC 1-5/hpf Ur Squamous Epith Cells 1-5 /hpf Urine Bacteria Few (2-10) H Vol Urine Centrifuged 10ml (spun) Assessment & Plan Assessment & Plan narrative: Assessment: 62-year-old 5 para 2 with a 13 cm pelvic cystic mass Unsure which ovary this is originating from History of a tubal cyst which was removed in 1979 Normal CA 125 Worsening symptoms Plan: Laparoscopic bilateral oophorectomy, removal of 1, possible both tubes. The risks, benefits, and alternatives to the procedure were explained to the patient. The risks including bleeding, infection, injury to the bowel, bladder, left ureter, and possible open procedure. She understands all of these risks and agrees to proceed. A full par Q was held and consent form was signed. Time Spent With Patient Time with patient: less than 30 minutes
--- NOTE | 2023-09-09 14:39 | PM.PREOP ---
Pre-operative Note Interval Note History & Physical reviewed/Exam performed by Physician: Yes Changes to H&P: No H&P completed within 30 days and has changed as indicated here:: 09/09/23
[2023-09-09] MEDS: CEFAZOLIN 2 GM/100 ML PREMIX 100 ML IV (14:55)
--- NOTE | 2023-09-09 15:38 | SUR.OPER ---
Lithotomy on padded OR bed, head on pillow, arms secured on padded arm boards at <90 degrees abduction. Legs secured in padded yellow fins stirrups.
--- NOTE | 2023-09-09 15:45 | PATH_ITS ---
Note [facility] Accession Number: [id number] TESTS RESULT FLAG UNITS REF RANGE LAB Clinician Provided Cytology Information No. of containers..01 Other (Miscellaneous) Source: PELVIC CYST FLUID DIAGNOSIS: PELVIC CYST FLUID. NEGATIVE FOR MALIGNANT CELLS. SCANT CELLULARITY. THIS INTERPRETATION INCLUDES EVALUATION OF A CELL BLOCK. Pathologist ICD10: R18.8 Signed out by: Juana Okeefe MD, Pathologist NPI- [id number] Performed by: Adalberto Clayton, Toys Inspector ([facility]) Gross description: 9 CC, RED, CLOUDY RECEIVED: FRESH IN 10 ML SYRINGE.VO /VDU 09/11/2023 1113 Local FLAG LEGEND: L-Low Normal,H-High Normal,LL-Alert Low,HH-Alert High <-Panic Low,>-Panic High,A-Abnormal,AA-Critical Abnormal Performed at: 01 [facility] [address] [place] [address] [address], [place] [address] Jaspreet Guo MD, Performed at: 01 [facility] [address], [place], [place] [id number] MD Jaspreet Guo MD Phone: [phone]
[2023-09-09] MEDS: BUPIVACAINE 0.5% (PF) 30 ML, EPINEPHrine 0.15 MG INJ (15:58)
[2023-09-09] MEDS: LACTATED RINGERS 1,000 ML 21 ML IV (16:10)
--- NOTE | 2023-09-09 16:40 | P.OP_ITS ---
Operative Date/Time/Diagnoses Date of procedure: 09/09/23 Time of procedure: 16:40 Pre-op diagnosis: 13 cm pelvic mass Worsening abdominal symptoms Shortness of breaths Post-op diagnosis: same Procedure & Clinicians Procedure: Procedures Operation Date: 09/09/23 17:00 Actual Procedure Side Surgeon p Laparoscopic bilateral salpingoopherectomy with left ovarian cyst removal Jennifer Turcios MD Indications: 62-year-old 5 para 2 with worsening abdominal pain. Known 13 cm pelvic cystic structure. Patient was also having difficulty taking a deep breath. CA 125 [id number] Surgeon: Jennifer Turcios Sand Caster Apprentice: Chasity Santiago Anesthesia Type: General and Local Operative Notes Findings: Five week size anteverted uterus Normal right tube and ovary Left tube and ovary torsed x4 with 15 cm fluid-filled structure Closure Type: primary Specimen(s): left tube & ovary and right tube & ovary Estimated blood loss (mL): 3 Blood products transfused: none Procedure in detail: After informed consent was obtained, the patient was taken to the operating room where she was placed in the dorsal supine position. After adequate general endotracheal anesthesia was achieved, she was placed in the dorsal lithotomy position, and prepped and draped in the usual sterile fashion. A time-out was performed. A bivalve speculum was placed into the vagina and the anterior lip of the cervix was grasped with a single-tooth tenaculum. The cervical os was sequentially dilated until the Zumi uterine manipulator could pass easily into the endometrial cavity. The single-tooth tenaculum was removed from the anterior lip of the cervix. The bivalve speculum was removed from the vagina. Attention was then turned to the abdomen where 6 cc of 0.5% Marcaine with epinephrine were injected in the umbilical fold. A 5 mm incision was made. The Verees needle was placed into the peritoneal cavity and its placement confirmed with aspiration and drop test. The abdomen was insufflated with 2.9L of CO2. The Verees needle was removed. A 5mm trocar was placed without difficulty. Two other trocars were placed 4 cm lateral to the midline at the level of the umbilicus. The left ovary and tube were enlarded to 15cm. The left ovary was found to be torsed. It was unraveled at the pedicle. The cyst was decompressed with a point aspirator. Fluid was sent to cytology. The infundibulopelvic vessels were cauterizd and cut with the Powerseal. Hemostasis was achieved. This was repeated on the right infundibulopelvic ligament. Hemostasis was achieved. 6cc of 0.5% marcaine were injected in the midline of the previous Pfannenstiel incision. A 12mm incision was made. A 12 mm trocar was placed under direct visualization. A large endobag was placed thru the trocar and opened. Both tubes and ovaries and the cyst were placed into the endobag. The endobag was closed and the edges of the bag were brought up thru the skin. An Jason was placed into the bag. The ovaries and tubes were morcellated in 20 pieces. The bag and Jason were removed from the incision. The fascia was reapproximated with 0-Vicryl. The abdomen was reinsufflated. The pelvis was copiously irrigated. Hemostasis was achieved. The instruments were removed from the abdomen. The CO2 was released. The incisions were closed with 4-0 Monocryl in a subcuticular fashion. Steri strips and Allevyn dressings were placed. The ZUMI uterine manipulator was removed from the uterus. Sponge, lap and instrument counts were correct x 2. The patient tolerated the procedure well and was taken to PACU in stable condition. Complications: none Post-operative Condition: stable Disposition: PACU Plan for aftercare: Home after recovery
[2023-09-09] MEDS: ACETAMINOPHEN IV 1,000 MG/100 ML VIAL 400 MG IV (16:58)
== END 2023-09-09 17:30 | disposition home or self-care (01) ==
LOC: ED 11:42 → AC 14:10 → OR 09-11 06:27
PROVIDERS: Emergency Medicine; Emergency Provider Physician Assistant; PCP Physician Assistant Medical; Referring Provider Physician Assistant; Visit Provider Obstetrics & Gynecology
PROC: (CPT 58661; principal; 2023-09-09 17:00)
DX: R19.00 Intra-abdominal and pelvic swelling, mass and lump, unspecified site (principal); N83.53 Torsion of ovary, ovarian pedicle and fallopian tube; D27.1 Benign neoplasm of left ovary
CPT/HCPCS: 58661; 36415; 51798; 74177; 76830; 76856; 80053; 81003; 81015; 82378; 83690; 85025; 86304; 86305; 87077; 87086; 87186; 99284; 99285; J0136; J0171; J0330; J0690; J1100; J2250; J2405; J2704; J3010; J3490; Q9967

== ENCOUNTER 2023-10-10 07:20 | Day surgery (SDC) | payer OTHER, SELFPAY ==
[2023-10-10] MEDS: LACTATED RINGERS 1,000 ML 42 ML IV (07:55)
--- NOTE | 2023-10-10 08:23 | P.HP_ITS ---
History of Present Illness History of Present Illness Date Patient Seen: 10/10/23 Time Patient Seen: 08:23 Chief complaint: Screening Colonoscopy Narrative: 62-year-old woman here for screening colonoscopy. Last colonoscopy 10 year ago normal. No family history of intestinal malignancy. No abdominal concerns today. [facility] Surgical History Status post bilateral salpingo-oophorectomy (BSO) History of nephrectomy (06/10/13) Social History Smoking Status: Never smoker alcohol intake: never Meds Home Medications and Allergies Home Medications Medication Instructions Recorded Confirmed Type peg 3350-sod sulf,vskus-czw-hdw 1,000 ml PO DIRECTED #2,000 mL 09/01/23 09/22/23 Rx 178.7-7.3-0.5-1.12-0.9 gram oral soln (Suflave) ondansetron 4 mg disintegrating 4 mg PO Q6H #7 tabs 09/09/23 09/22/23 Rx tablet bupropion HCl 150 mg tablet,12 hr 150 mg PO BID 10/10/23 10/10/23 History sustained-release Allergies Allergy/AdvReac Type Severity Reaction Status Date / Time shellfish derived Allergy Mild CRABS, Verified 10/10/23 07:56 [place] Exam Narrative Exam Narrative: General adult woman alert oriented no acute distress Chest nonlabored respiration Extremities warm well perfused Assessment & Plan Assessment & Plan narrative: The patient requires colorectal screening and colonoscopy is recommended. Technical details were discussed. Risks, benefits, alternatives explained. Risks including but not limited to myocardial infarction, aspiration, bleeding, pain, missed lesion, incomplete examination, need for further radiographic studies, colonic perforation, and need for major abdominal surgery were discussed. All questions were answered to their satisfaction, and they are in agreement with this plan.
[2023-10-10 09:00] VITALS: BP 106/74; PULSE 66; RESP 10; TEMP 37; O2SAT 93
--- NOTE | 2023-10-10 09:02 | P.OP.COLON_ITS ---
Operative Date/Time/Diagnoses Date of procedure: 10/10/23 Time of procedure: 09:02 Pre-op diagnosis: Colorectal screening Procedure & Clinicians Study performed: Screening colonoscopy Same procedure as scheduled: Yes Indications: Colorectal screening Surgeon: Mil Vega Procedure Notes Procedure in detail: The history and physical was performed/updated and the patient is ASA class is 2. The procedure was discussed in detail with the patient. Potential risks co mplications including infection, bleeding, missed diagnosis, perforation, need for surgery, and were explained. Their questions were answered and informed consent was obtained. Patient was brought to the procedure room and placed standard monitoring equipment. The patient's vital signs were monitored continuously throughout the entire procedure. Prior to starting time-out was performed. The patient was placed in the left lateral recumbent position. Procedural sedation was administered by anesthesia. Examination began with a thorough inspection of the perianal area there was no evidence of fissures, fistulae, external hemorrhoids or cutaneous malignancy. The colonoscopy scope was then placed into the anal canal and was advanced to the cecum, which was identified by the ileocecal valve, the appendiceal orifice and the confluence of the taenia. The scope was then slowly withdrawn examining colon thoroughly in all directions, irrigating it of any residual stool. The scope was retroflexed within the rectum The patient tolerated the procedure well. They will be discharged once criteria are met. The prep was of good/excellent quality. The withdrawl time was 7 minutes. FINDINGS * Tortuous colon requiring external compression and stiffening of the scope. * No masses polyps or inflammation Impression: Normal colonoscopy Post-procedure Recommendations: Colonoscopy in 10 years Disposition: same day surgery
[2023-10-10 09:06] VITALS: BP 113/78; PULSE 85; RESP 13; O2SAT 99
[2023-10-10 09:11] VITALS: BP 119/75; PULSE 72; RESP 14; O2SAT 100
[2023-10-10 09:12] VITALS: BP 120/78; PULSE 72; RESP 16; TEMP 37; O2SAT 99
== END 2023-10-10 09:22 | disposition home or self-care (01) ==
PROVIDERS: PCP Physician Assistant Medical; Referring Provider Surgery; Visit Provider Surgery
PROC: 0DJD8ZZ Inspection of Lower Intestinal Tract, Via Natural or Artificial Opening Endoscopic (ICD-10-PCS; CPT 45378; principal; 2023-10-10 08:15)
DX: Z12.11 Encounter for screening for malignant neoplasm of colon (principal)
CPT/HCPCS: 45378; J2704

== ENCOUNTER → 2023-12-14 13:53 | Outpatient (CLI) | payer OTHER, SELFPAY ==
--- NOTE | 2023-12-14 | DI.MG.S_ITS ---
BILATERAL DIGITAL SCREENING MAMMOGRAM 3D/2D WITH CAD: 12/14/2023 CLINICAL: Routine screening. Comparison is made to exams dated: 11/02/2022 mammogram, 09/28/2021 mammogram, and 08/11/2020 mammogram - [facility]. Both breasts are heterogeneously dense, which may obscure small masses (category c / 51-75% glandular tissue). Current study was also evaluated with a Computer Aided Detection (CAD) system. No significant masses, calcifications, or other findings are seen in either breast. There has been no significant interval change. IMPRESSION: NEGATIVE There is no mammographic evidence of malignancy. A 1 year screening mammogram is recommended. Based on the Tyrer Cuzick model (a risk assessment model) the patient's lifetime risk is 10.1% and her 10 year risk is 4.7%. According to the ACR, ACS, and NCCN guidelines, an annual breast MRI exam along with mammogram is recommended if the patient's lifetime risk is 20% or greater. This exam was interpreted at Station ID: [id number]. NOTE: For mammograms, a report in lay terms will be sent to the patient. Approximately 15% of breast malignancies will not be visualized mammographically. In the management of a palpable breast mass, a negative mammogram must not discourage biopsy of a clinically suspicious lesion. Electronically Signed By: Kaylynn bennett/sebastien:12/14/2023 19:09:06 letter sent: Normal Exam ACR BI-RADS Category 1: Negative 3341F
== END ==
PROVIDERS: PCP Physician Assistant Medical; Referring Provider Physician Assistant Medical; Visit Provider Physician Assistant Medical
DX: Z12.31 Encounter for screening mammogram for malignant neoplasm of breast (principal); R92.333 Mammographic heterogeneous density, bilateral breasts
CPT/HCPCS: 77063; 77067

== ENCOUNTER → 2025-01-07 14:05 | Outpatient (CLI) | payer MEDICARE, OTHER, SELFPAY ==
--- NOTE | 2025-01-07 14:14 | DI.MG.S_ITS ---
MM screening mammo BI: 01/07/2025. BI-RADS: 1 CLINICAL: 64-year old female for bilateral screening mammogram. Tyrer-Cuzick lifetime risk of 6.7%. No personal or first-degree family history of breast cancer. PRIOR EXAMS 12/14/2023, 11/02/2022, 09/28/2021, 08/11/2020, 04/03/2019, 02/27/2018. MAMMOGRAPHY TECHNIQUE: 2D and 3D (tomosynthesis) digital mammographic views obtained, with additional images as needed for full coverage. Current study was also evaluated with a Computer Aided Detection (CAD) system. DENSITY C. The breasts are heterogeneously dense, which may obscure small masses. MAMMOGRAPHY FINDINGS Bilateral: No suspicious mass, asymmetry, microcalcification, or other abnormality seen. IMPRESSION: * No evidence of malignancy. RECOMMENDATIONS Bilateral * Annual screening mammography. OVERALL ASSESSMENT CATEGORY BI-RADS-1: Negative. The [employer] recommends annual screening mammography beginning at age 40 for women with average risk of breast cancer. ELECTRONICALLY SIGNED: Aditya Pavon M.D. on 01/08/2025 at 11:22:36 AM PT Interpreting Station ID: [id number]
== END ==
PROVIDERS: PCP Physician Assistant Medical; Referring Provider Physician Assistant Medical; Visit Provider Physician Assistant Medical
DX: Z12.31 Encounter for screening mammogram for malignant neoplasm of breast (principal); R92.333 Mammographic heterogeneous density, bilateral breasts
CPT/HCPCS: 77063; 77067